=== PATIENT | male | born 1975 | race Caucasian/White ===

== ENCOUNTER 2021-12-19 08:23 | Observation (INO) ==
[2021-12-19] MEDS ORDERED: Iopamidol - 370 500 ML MLS IVP ONE (08:34)
[2021-12-19 08:52] LABS: Hematocrit 41.5 % (37.5-50.1); Hemoglobin 14.2 g/dL (12.9-16.9); Mean Corpuscular HGB Conc 34.2 g/dL (31.6-35.5); Mean Corpuscular Hemoglobin 30.8 pg (28.0-33.3); Mean Platelet Volume 9.8 fL (9.4-12.4); Platelet Count 264 K/mcL (140-400); Red Blood Count 4.61 M/mcL (4.19-5.50); Red Cell Distribution Width 12.3 % (11.5-14.5); White Blood Count 9.4 K/mcL (4.3-11.1)
[2021-12-19 10:07] LABS: BUN/Creatinine Ratio 14 (6-26); Blood Urea Nitrogen 15 mg/dL (6-20); Calcium 9.6 mg/dL (8.6-10.3); Carbon Dioxide 24 mEq/L (23-29); Chloride 104 mEq/L (98-107); Glucose 88 mg/dL (70-105); Osmolality,Calculated 286 (280-300); Potassium 3.9 mEq/L (3.5-5.1); Sodium 138 mEq/L (136-145); Troponin I < 0.03 ng/mL (< 0.04)
[2021-12-19] MEDS ORDERED: Ondansetron 4 MG/2 ML VIAL IVP PRN (10:41)
[2021-12-19] MEDS ORDERED: Naloxone 0.4 MG/ML INJ IVP PRN (10:41)
[2021-12-19] MEDS ORDERED: Acetaminophen 325 MG TABLET PO PRN (10:51)
[2021-12-19] MEDS: Aspirin Enteric Coated 81 MG Tablet PO SCH (13:35)
[2021-12-19] MEDS: *HR* Heparin 5,000 UNIT/ML VIAL SQ SCH (22:06)
[2021-12-20 02:58] VITALS: O2SAT 95
[2021-12-20] MEDS: *HR* Heparin 5,000 UNIT/ML VIAL SQ SCH (05:25)
[2021-12-20] MEDS: Aspirin Enteric Coated 81 MG Tablet PO SCH (07:45)
[2021-12-20 08:16] LABS: INR 1.2; Prothrombin Time 13.3 Seconds (9.4-12.1)
[2021-12-20 08:26] LABS: Alanine Aminotransferase 16 Units/L (7-52); Albumin/Globulin Ratio 1.5 (1.1-2.2); Alkaline Phosphatase 70 Units/L (34-104); Aspartate Amino Transferase 13 Units/L (13-39); BUN/Creatinine Ratio 12 (6-26); Blood Urea Nitrogen 12 mg/dL (6-20); Calcium 9.1 mg/dL (8.6-10.3); Carbon Dioxide 27 mEq/L (23-29); Chloride 103 mEq/L (98-107); Chol/HDL Ratio 5.8 (0-4.9); Cholesterol 242 mg/dL (< 200); Globulin 2.7 g/dL (2.4-3.5); Glucose 106 mg/dL (70-105); HDL Cholesterol 42 mg/dL (40-59); LDL Cholesterol,Calculated 169 mg/dL (< 100); Osmolality,Calculated 284 (280-300); Potassium 4.2 mEq/L (3.5-5.1); Sodium 137 mEq/L (136-145); Total Protein 6.7 g/dL (6.4-8.9); Triglycerides 155 mg/dL (< 150); Troponin I < 0.03 ng/mL (< 0.04)
[2021-12-20] MEDS ORDERED: BuPROPion XL (24 HR) 150 MG TABLET PO SCH (09:00)
[2021-12-20 10:44] VITALS: BP 149/96; PULSE 89; TEMP 98
[2021-12-20 11:10] LABS: Estimated Average Glucose 105 mg/dl; Hemoglobin A1C 5.3 %
== END 2021-12-20 13:18 | disposition home or self-care (01) ==
LOC: EMEROOARM 08:23 → 3BNU 08:23
PROVIDERS: ADMIT General Practice; ATTEND General Practice